=== PATIENT | male | born 2000 | race African-American/Black ===

== ENCOUNTER 2024-01-26 15:13 | Emergency (ER) | payer MEDICAID ==
[~2024-01-26] VITALS: Ht 175.3 cm; Wt 54.4 kg
[2024-01-26 15:26] VITALS: O2SAT 98
[2024-01-26] MEDS ORDERED: PREDNISONE 20MG TABLET PO STA (15:39)
[2024-01-26] MEDS ORDERED: ALBUTEROL (0.083%) 2.5MG/3ML NEB HHN ONE (15:45)
[2024-01-26] MEDS ORDERED: P50 MT (15:47)
[2024-01-26] MEDS ORDERED: ALBU18HF2 IH (15:47)
[2024-01-26] MEDS: ALBUTEROL (0.083%) 2.5MG/3ML NEB HHN NR (17:00)
[2024-01-26 17:10] VITALS: BP 110/69; PULSE 83; RESP 17; TEMP 36.94740; O2SAT 100
[2024-01-26] MEDS: PREDNISONE 20MG TABLET PO NR (17:15)
== END 2024-01-26 17:10 | disposition home or self-care (01) ==
LOC: ER 15:13
DX: J45.901 Unspecified asthma with (acute) exacerbation (principal)
CPT/HCPCS: 99281; 99283